=== PATIENT | female | born 1950 | race Caucasian/White ===

== ENCOUNTER 2018-05-19 11:48 | Observation (INO) | payer OTHER ==
[2018-05-19 14:05] LABS: ADD MAN DIFF? NO
[2018-05-19 14:10] LABS: WHITE BLOOD COUNT 6.1 10^3/ul (4.8-10.8)
[2018-05-19 14:10] LABS: BASOPHIL # 0.1 10^3/ul (0.0-0.1); EOSINOPHILS # 0.1 10^3/ul (0.0-0.5); HEMATOCRIT 36.4 % (37.0-47.0); HEMOGLOBIN 11.9 g/dl (12.0-16.0); LYMPHOCYTES % 16.2 % (15.0-51.0); MEAN CORPUSCULAR HEMOGLOBIN 29.3 pg (29.0-33.0); MEAN CORPUSCULAR HGB CONC 32.7 g/dl (32.0-37.0); MEAN CORPUSCULAR VOLUME 89.7 fl (82.0-101.0); MEAN PLATELET VOLUME 10.2 fl (7.4-10.4); MONOCYTE # 0.4 10^3/ul (0.3-0.9); MONOCYTES % 6.5 % (0.0-11.0); NEUTROPHIL # 4.5 10^3/ul (1.6-7.5); PLATELET COUNT 196 10^3/UL (140-415); RED BLOOD COUNT 4.06 10^6/ul (4.20-5.40); RED CELL DISTRIBUTION WIDTH 12.9 % (11.5-14.5)
[2018-05-19 14:29] LABS: ANION GAP 7 (5-13); BLOOD UREA NITROGEN 9 mg/dl (7-20); CALCIUM 9.7 mg/dl (8.4-10.2); CARBON DIOXIDE 28 mmol/L (21-31); CHLORIDE 105 mmol/L (97-110); CREATININE 0.71 mg/dl (0.44-1.00); Estimated GFR > 60 mL/min (>60); GLUCOSE 111 mg/dl (70-220); POTASSIUM 4.1 mmol/L (3.5-5.1); SODIUM 140 mmol/L (135-144)
[2018-05-19 14:40] LABS: B-TYPE NATRIURETIC PEPTIDE 604 PG/ML (0-125)
[2018-05-19 14:43] LABS: TROPONIN-I 0.719 ng/ml (0.000-0.120)
[2018-05-19] MEDS ORDERED: ONDANSETRON 4 MG INJ IV ×2 (17:30→18:30)
[2018-05-19] MEDS ORDERED: ACETAMINOPHEN 325 MG TAB PO ×2 (17:30→18:30)
[2018-05-19] MEDS ORDERED: ZOLPIDEM 5 MG TAB PO (18:30)
[2018-05-19] MEDS ORDERED: morphine 2 MG INJ IV (18:30)
[2018-05-19] MEDS ORDERED: NACL 0.9% 3 ML SYG IV (18:30)
[2018-05-19] MEDS ORDERED: HYDROCODONE/APAP (5/325) TAB PO (18:30)
[2018-05-19] MEDS ORDERED: NITROGLYCERIN (SL) 0.4 MG TAB SL (18:30)
[2018-05-19] MEDS: MAGNESIUM HYDROXIDE 30ML CUP PO (20:46)
[2018-05-19] MEDS: ATORVASTATIN 80 MG TAB PO (20:46)
[2018-05-19 21:00] LABS: CREATINE KINASE 33 IU/L (23-200)
[2018-05-19 21:13] LABS: CK INDEX 3.8; CK-MB 1.24 ng/ml (0.0-2.4)
[2018-05-19] MEDS: LORAZEPAM 1 MG TAB PO (21:20)
[2018-05-20 02:22] LABS: CREATINE KINASE 30 IU/L (23-200)
[2018-05-20 02:31] LABS: CK INDEX 3.6; CK-MB 1.08 ng/ml (0.0-2.4); TROPONIN-I 0.562 ng/ml (0.000-0.120)
[2018-05-20 06:40] LABS: ADD MAN DIFF? NO
[2018-05-20 06:44] LABS: BASOPHIL # 0.1 10^3/ul (0.0-0.1); BASOPHILS % 1.1 % (0.0-2.0); EOSINOPHILS # 0.2 10^3/ul (0.0-0.5); EOSINOPHILS % 3.9 % (0.0-7.0); HEMATOCRIT 35.4 % (37.0-47.0); HEMOGLOBIN 11.5 g/dl (12.0-16.0); LYMPHOCYTES # 1.5 10^3/ul (0.8-2.9); LYMPHOCYTES % 24.1 % (15.0-51.0); MEAN CORPUSCULAR HEMOGLOBIN 29.3 pg (29.0-33.0); MEAN CORPUSCULAR HGB CONC 32.5 g/dl (32.0-37.0); MEAN CORPUSCULAR VOLUME 90.1 fl (82.0-101.0); MEAN PLATELET VOLUME 10.6 fl (7.4-10.4); MONOCYTE # 0.6 10^3/ul (0.3-0.9); MONOCYTES % 9.8 % (0.0-11.0); NEUTROPHIL # 3.7 10^3/ul (1.6-7.5); NEUTROPHILS % 60.8 % (39.0-77.0); PLATELET COUNT 194 10^3/UL (140-415); RED BLOOD COUNT 3.93 10^6/ul (4.20-5.40); RED CELL DISTRIBUTION WIDTH 13.2 % (11.5-14.5)
[2018-05-20 06:44] LABS: WHITE BLOOD COUNT 6.1 10^3/ul (4.8-10.8)
[2018-05-20] MEDS: PANTOPRAZOLE (EC) 40 MG TAB PO (06:48)
[2018-05-20 07:07] LABS: ANION GAP 6 (5-13); BLOOD UREA NITROGEN 12 mg/dl (7-20); CARBON DIOXIDE 28 mmol/L (21-31); CHLORIDE 106 mmol/L (97-110); CREATININE 0.69 mg/dl (0.44-1.00); Estimated GFR > 60 mL/min (>60); GLUCOSE 90 mg/dl (70-220); MAGNESIUM 2.9 mg/dl (1.7-2.5); PHOSPHORUS 3.5 mg/dl (2.5-4.9); POTASSIUM 4.2 mmol/L (3.5-5.1); SODIUM 140 mmol/L (135-144)
[2018-05-20] MEDS: LISINOPRIL 5 MG TAB PO (08:12)
[2018-05-20 08:13] LABS: HEMOGLOBIN A1C 5.3 % (0-5.9)
[2018-05-20] MEDS: ASPIRIN (EC) 81 MG TAB PO (08:13)
[2018-05-20] MEDS: CITALOPRAM 20 MG TAB PO (08:13)
[2018-05-20] MEDS: CLOPIDOGREL 75 MG TAB PO (08:14)
== END 2018-05-20 18:26 | disposition home or self-care (01) ==
LOC: E/R 11:48 → TEL 17:29
DX: R06.02 Shortness of breath (principal); F41.9 Anxiety disorder, unspecified; I51.81 Takotsubo syndrome
CPT/HCPCS: 36415; 71045; 80048; 82550; 82553; 83036; 83735; 83880; 84100; 84484; 85025; 93005; 99285-25; G0378